=== PATIENT | male | born 1985 | race Caucasian/White ===

== ENCOUNTER 2017-09-30 09:49 | Emergency (ER) | payer MEDICAID ==
[2017-09-30 09:58] VITALS: BP 168/113
[2017-09-30] MEDS ORDERED: DEXAMETHASONE 10 MG/ML VIAL PO STA (10:25)
--- NOTE | 2017-09-30 10:28 | ED Physician Documentation ---
PD HPI URI - Stated complaint Stated Complaint: PEREZ/COUGH/DIFFICULTY BREATHING - Chief complaint Chief Complaint: Resp - History obtained from History obtained from: Patient - History of Present Illness Timing - onset: How many weeks ago (2) Timing duration: Weeks (2) Timing details: Gradual onset, Still present Associated symptoms: Fever, Chills, Nasal congestion, Rhinorrhea, Sore throat, Productive cough, Dyspnea Contributing factors: Sick contact Improves by: Rest, MDI/nebulizer Worsened by: Activity Similar symptoms before: Diagnosis (asthma, sinusitis) Recently seen: Not recently seen - Additional information Additional information: 32-year-old male with a history of asthma has developed a cough and congestion. He has had improvement in his cough and then subsequently developed worsening over the last 3 days. He has developed fever color to his sputum and persistent shortness of breath. He has about 30 puffs left on his inhaler. He has used about 1 inhaler every 6 months. Review of Systems Constitutional: reports: Fever Eyes: denies: Decreased vision Ears: denies: Ear pain Nose: reports: Rhinorrhea / runny nose, Congestion Throat: reports: Sore throat Cardiac: denies: Chest pain / pressure, Palpitations Respiratory: reports: Dyspnea, Cough, Wheezing GI: denies: Abdominal Pain, Nausea, Vomiting PD PAST MEDICAL HISTORY - Past Medical History Past Medical History: Yes Respiratory: Asthma Other Past Medical History: Bronchitis, wooping cough - Past Surgical History Past Surgical History: Yes - Present Medications Home Medications: Ambulatory Orders Medication Instructions Recorded Confirmed Albuterol Sulf [Ventolin Hfa 1 - 2 puffs INH Q4HR PRN 09/30/17 09/30/17 Inhaler] Albuterol Sulf [Ventolin Hfa 1 - 2 puffs INH Q4HR PRN #1 inhaler 09/30/17 Inhaler] Azithromycin [Zithromax] 250 mg PO DAILY #6 tablet 09/30/17 - Allergies Allergies/Adverse Reactions: Allergies Allergy/AdvReac Type Severity Reaction Status Date / Time Penicillins Allergy Unknown Verified 09/30/17 09:58 - Social History Does the pt smoke?: No Smoking Status: Never smoker Does the pt drink ETOH?: Yes ETOH Use: Wine Does the pt have substance abuse?: Yes Substance Use and Type: Marijuana - Immunizations Immunizations are current?: Yes PD ED PE NORMAL - Vitals Vital signs reviewed: Yes (hypertensive) - General General: Alert and oriented X 3, No acute distress, Well developed/nourished - HEENT HEENT: Atraumatic, PERRL, EOMI, Other (The left TM is inflamed the right is clear. The pharynx is with mild swelling and erythema. ) - Neck Neck: Supple, no meningeal sign, No bony TTP - Cardiac Cardiac: RRR, No murmur - Respiratory Respiratory: No respiratory distress, Other (wheezes bilaterally ) - Abdomen Abdomen: Soft, Non tender - Back Back: No CVA TTP, No spinal TTP - Derm Derm: Normal color, Warm and dry, No rash - Extremities Extremities: No deformity, No edema - Neuro Neuro: No motor deficit, No sensory deficit Eye Opening: Spontaneous Motor: Obeys Commands Verbal: Oriented GCS Score: 15 - Psych Psych: Normal mood, Normal affect Results - Vitals Vitals: Vital Signs - 24 hr 09/30/17 09:56 Temperature 36.1 C L Heart Rate 79 Respiratory 20 Rate Blood Pressure 168/113 H O2 Saturation 96 Oxygen O2 Source Room air PD MEDICAL DECISION MAKING - ED course Complexity details: considered differential, d/w patient ED course: 32-year-old male with an exacerbation of his asthma with otitis media. He is administered Dexamethasone 10 mg orally and we will place him on some azithromycin. Departure - Departure Disposition: 01 Home, Self Care Clinical Impression: Otitis media Qualifiers: Otitis media type: suppurative Chronicity: acute Laterality: left Recurrence: not specified as recurrent Spontaneous tympanic membrane rupture: without spontaneous rupture Qualified Code(s): H66.002 - Acute suppurative otitis media without spontaneous rupture of ear drum, left ear Asthma exacerbation Qualifiers: Asthma severity: mild Asthma persistence: intermittent Qualified Code(s): J45.21 - Mild intermittent asthma with (acute) exacerbation Condition: Stable Instructions: ED Bronchitis Asthmatic, ED Otitis Media Acute Adult Follow-Up: [facility] [Provider Group] Prescriptions: Albuterol Sulf [Ventolin Hfa Inhaler] 1 - 2 puffs INH Q4HR PRN #1 inhaler PRN Reason: Shortness Of Air/Wheezing Azithromycin [Zithromax] 250 mg PO DAILY #6 tablet Discharge Date/Time: 09/30/17 10:50
== END 2017-09-30 10:50 | disposition home or self-care (01) ==
LOC: ED 09:49
DX: J45.21 Mild intermittent asthma with (acute) exacerbation (principal); H66.002 Acute suppurative otitis media without spontaneous rupture of ear drum, left ear
CPT/HCPCS: 99283

== ENCOUNTER 2018-01-22 10:22 | Emergency (ER) | payer MEDICAID ==
[2018-01-22] MEDS ORDERED: DEXAMETHASONE 10 MG/ML VIAL PO STA (11:50)
--- NOTE | 2018-01-22 11:53 | ED Physician Documentation ---
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 He has had symptoms for about 3 days. Review of Systems Constitutional: denies: Fever, Chills Eyes: denies: Decreased vision Ears: denies: Ear pain Nose: reports: Congestion. denies: Rhinorrhea / runny nose Throat: reports: Oral lesions / sores, Other (swollen nodes). denies: Dental pain / toothache, Sore throat Cardiac: denies: Chest pain / pressure, Palpitations Respiratory: denies: Dyspnea, Cough GI: denies: Abdominal Pain, Abdominal Swelling : denies: Dysuria, Frequency Skin: denies: Rash Musculoskeletal: reports: Neck pain. denies: Back pain, Extremity pain PD PAST MEDICAL HISTORY - Past Medical History Past Medical History: Yes Respiratory: Asthma - Past Surgical History Past Surgical History: Yes - Present Medications Home Medications: Ambulatory Orders Medication Instructions Recorded Confirmed Albuterol Sulf [Ventolin Hfa 1 - 2 puffs INH Q4HR PRN 09/30/17 09/30/17 Inhaler] Albuterol Sulf [Ventolin Hfa 1 - 2 puffs INH Q4HR PRN #1 inhaler 09/30/17 Inhaler] Azithromycin [Zithromax] 250 mg PO DAILY #6 tablet 09/30/17 Azithromycin [Zithromax] 250 mg PO DAILY #6 tablet 01/22/18 - Allergies Allergies/Adverse Reactions: Allergies Allergy/AdvReac Type Severity Reaction Status Date / Time Penicillins Allergy Unknown Verified 09/30/17 09:58 - Social History Does the pt smoke?: No Smoking Status: Never smoker Does the pt drink ETOH?: Yes Does the pt have substance abuse?: Yes Substance Use and Type: Marijuana - Immunizations Immunizations are current?: Yes PD ED PE NORMAL - Vitals Vital signs reviewed: Yes (hypertensive ) - General General: Alert and oriented X 3, No acute distress, Well developed/nourished - HEENT HEENT: Atraumatic, PERRL, EOMI, Ears normal, Moist mucous membranes, Other ( There are superficial ulcerations to the right side of the tongue sub lingual. 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, No motor deficit, No sensory deficit, Normal speech Eye Opening: Spontaneous Motor: Obeys Commands Verbal: Oriented GCS Score: 15 - Psych Psych: Normal mood, Normal affect Results - Vitals Vitals: Vital Signs - 24 hr 01/22/18 10:34 Temperature 36.8 C Heart Rate 75 Respiratory 12 Rate Blood Pressure 168/113 H O2 Saturation 99 Oxygen O2 Source Room air PD MEDICAL DECISION MAKING - ED course Complexity details: reviewed old records, considered differential, d/w patient ED course: 32-year-old male with aphthous ulcers in the mouth and lymphadenitis is administered dexamethasone 10 mg orally and we will place him on some azithromycin. He is allergic to penicillin. - Sepsis Event Vital Signs: Vital Signs - 24 hr 01/22/18 10:34 Temperature 36.8 C Heart Rate 75 Respiratory 12 Rate Blood Pressure 168/113 H O2 Saturation 99 Oxygen O2 Source Room air Departure - Departure Disposition: 01 Home, Self Care Clinical Impression: Lymphadenitis, Stomatitis, ulcerative Condition: Stable Instructions: ED Canker Sore, ED Cervical Adenitis Abx Tx Follow-Up: [facility] [Provider Group] Prescriptions: Azithromycin [Zithromax] 250 mg PO DAILY #6 tablet
[2018-01-22 12:36] VITALS: BP 153/110
== END 2018-01-22 12:35 | disposition home or self-care (01) ==
LOC: ED 10:22
DX: I88.9 Nonspecific lymphadenitis, unspecified (principal); K12.1 Other forms of stomatitis
CPT/HCPCS: 99283; 99284

== ENCOUNTER 2019-07-20 10:42 | Emergency (ER) | payer MEDICAID, OTHER ==
[2019-07-20 10:51] VITALS: BP 188/116
[2019-07-20 11:07] LABS: RAPID STREP SCREEN Negative (Negative)
--- NOTE | 2019-07-20 11:21 | ED Physician Documentation ---
PD HPI HEENT - Stated complaint Stated Complaint: SORE THROAT - Chief complaint Chief Complaint: Heent - History obtained from History obtained from: Patient - History of Present Illness Timing - onset: How many days ago (10) Timing - duration: Days (10) Timing - details: Gradual onset Location: Right ear, Left ear, Sinuses, Nose, Throat Improves: Medication Associated symptoms: Congestion, Rhinorrhea, Headache, Cough. 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 Has had a lot of postnasal drip. He also developed some sinus pressure but that seemed to been relieved when he took some DayQuil. He started to notice some swollen lymph nodes and ringing in his ears 5 or 6 days ago. There is no pain in his ears. He was just trying to ride this out until he found out yesterday that a friend of theirs was positive for strep and he been exposed to him a couple days before symptoms started. He denies any fever. Has had minimal cough but felt mildly short of breath which she finds interesting since he quit smoking a month ago. He also got a headache5 days ago when he coughed lasted for about 30 minutes this intense pressure across the back of his head he took ibuprofen for it and its pretty much been gone since that time. He never felt dizzy or nauseous no vomiting. Review of Systems Constitutional: denies: Fever Ears: reports: Tinnitus/ringing. denies: Ear pain Nose: reports: Rhinorrhea / runny nose, Congestion (The nasal mucus is gone from of thin yellow to a dark green yesterday) Throat: reports: Sore throat Respiratory: reports: Dyspnea, Cough GI: denies: Nausea, Vomiting Neurologic: reports: Headache PD PAST MEDICAL HISTORY - Past Medical History Respiratory: Asthma - Past Surgical History Past Surgical History: Yes - Present Medications Home Medications: Ambulatory Orders Medication Instructions Recorded Confirmed Albuterol Sulf [Ventolin Hfa 1 - 2 puffs INH Q4HR PRN #1 inhaler 09/30/17 Inhaler] Azithromycin [Zithromax] 250 mg PO DAILY #6 tablet 07/20/19 - Allergies Allergies/Adverse Reactions: Allergies Allergy/AdvReac Type Severity Reaction Status Date / Time Penicillins Allergy Unknown Verified 07/20/19 10:52 - Social History Does the pt smoke?: No Smoking Status: Never smoker Does the pt drink ETOH?: Yes Does the pt have substance abuse?: Yes - Immunizations Immunizations are current?: Yes PD ED PE NORMAL - Vitals Vital signs reviewed: Yes - General General: Alert and oriented X 3, No acute distress, Well developed/nourished - HEENT HEENT: Atraumatic, PERRL, EOMI, Moist mucous membranes, Other (There is some erythema to the tonsillar pillars. No tonsillar enlargement or exudate but there is some palatal petechiae. The nares is congested with boggy nasal mucosa bilaterally no active purulent drainage. Tympanic membranes are both clear with evident landmarks but there is some serous fluid noted behind both TMs. 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 He is allergic to penicillin but will treat with Zithromax. The patient was in agreement with the plan. Departure - Departure Disposition: 01 Home, Self Care Clinical Impression: Sinusitis Qualifiers: Sinusitis location: unspecified location Chronicity: acute Recurrence: not specified as recurrent Qualified Code(s): J01.90 - Acute sinusitis, unspecified Condition: Good Instructions: ED Sinusitis Abx Tx Follow-Up: [facility] [Provider Group] Prescriptions: Azithromycin [Zithromax] 250 mg PO DAILY #6 tablet Comments: Take the Zithromax as prescribed. Use ibuprofen as an anti-inflammatory. May continue to use decongestants. Consider doing [place] pot or sinus rinse to help clear the mucus. Follow-up if not improving.
== END 2019-07-20 12:11 | disposition home or self-care (01) ==
LOC: ED 10:42
DX: J01.90 Acute sinusitis, unspecified (principal); Z88.0 Allergy status to penicillin; Z87.891 Personal history of nicotine dependence
CPT/HCPCS: 87070; 87077; 87430; 99283; 99284